=== PATIENT | female | born 1995 | race Hispanic/Latino ===

== ENCOUNTER 2021-02-02 13:52 | Emergency (ER) | payer SELFPAY ==
[2021-02-02 14:54] VITALS: BP 139/67
--- NOTE | 2021-02-02 15:03 | Emergency Department Report ---
- General Chief complaint: Skin Rash Stated complaint: RASH Time Seen by Provider: 02/02/21 14:58 Source: patient Mode of arrival: Ambulatory Limitations: No Limitations - History of Present Illness Initial comments: Patient is a 25-year-old female presents emergency room complaints of a diffuse rash that began yesterday. She has associated itching. Patient states that they just moved here from [place]. She states that she just bought a new bed and new mattress. She states that she has been keeping her clothes out in her trunk. She denies anyone else with the same rash. She denies any new soaps, lotions, detergents, medications, foods, anything else new that she can think of. No past medical history. No allergies medications. - Related Data Previous Rx's Medication Instructions Recorded Last Taken Type Cetirizine HCl [ZyrTEC 10mg rapdis] 10 mg PO DAILY #10 tab.rapdis 02/02/21 Unknown Rx Hydrocortisone 1% [Hydrocortisone 1 applicatio TP TID #1 tube 02/02/21 Unknown Rx 1% CREAM] Abscess Boil HPI - HPI Chief Complaint: Skin Rash Stated Complaint: RASH Time Seen by Provider: 02/02/21 14:58 Home Medications: Previous Rx's Medication Instructions Recorded Last Taken Type Cetirizine HCl [ZyrTEC 10mg rapdis] 10 mg PO DAILY #10 tab.rapdis 02/02/21 Unknown Rx Hydrocortisone 1% [Hydrocortisone 1 applicatio TP TID #1 tube 02/02/21 Unknown Rx 1% CREAM] ED Review of Systems ROS: Stated complaint: RASH Other details as noted in HPI Comment: All other systems reviewed and negative ED Past Medical Hx - Past Medical History Previous Medical History?: No Additional medical history: tachycardia - Surgical History Past Surgical History?: Yes Additional Surgical History: ovary and fallopian tube removal - Medications Home Medications: Home Medications Medication Instructions Recorded Confirmed Last Taken Type Cetirizine HCl [ZyrTEC 10mg rapdis] 10 mg PO DAILY #10 tab.rapdis 02/02/21 Unknown Rx Hydrocortisone 1% [Hydrocortisone 1 applicatio TP TID #1 tube 02/02/21 Unknown Rx 1% CREAM] ED Physical Exam - General Limitations: No Limitations General appearance: alert, in no apparent distress - Head Head exam: Present: atraumatic, normocephalic - Eye Eye exam: Present: normal appearance - ENT ENT exam: Present: mucous membranes moist - Respiratory Respiratory exam: Absent: respiratory distress, accessory muscle use - Neurological Exam Neurological exam: Present: alert, oriented X3 - Psychiatric Psychiatric exam: Present: normal affect, normal mood - Skin Skin exam: Present: warm, dry, other (diffuse erythematous papules consistent with bites, no signs of infection, no crusting, no skin denuding) ED Course Vital Signs 02/02/21 14:54 Temperature 98.4 F Pulse Rate 92 H Respiratory 18 Rate Blood Pressure 139/67 O2 Sat by Pulse 100 Oximetry ED Medical Decision Making - Medical Decision Making Patient is a 25-year-old female presents emergency room complaints of a diffuse rash that began yesterday. She has associated itching. Patient states that they just moved here from [place]. She states that she just bought a new bed and new mattress. She states that she has been keeping her clothes out in her trunk. She denies anyone else with the same rash. She denies any new soaps, lotions, detergents, medications, foods, anything else new that she can think of. No past medical history. No allergies medications. Vitals are stable. On exam:diffuse erythematous papules consistent with bites, no signs of infection, no crusting, no skin denuding. Examination appears insistent with bedbug bites versus insect bites. She has no signs of acute allergic reaction, no signs of acute emergent skin condition. Advised patient Rash could be related to insect bite versus bedbug bites. Please use medication as prescribed. Please seal up your close in a trash bag for 1 week and to wash everything else in hot water and bleach. Follow-up with your primary care doctor for reexamination. Return to emergency room for new or worsening symptoms. Critical care attestation.: If time is entered above; I have spent that time in minutes in the direct care of this critically ill patient, excluding procedure time. ED Disposition Clinical Impression: Rash Disposition: DC-01 TO HOME OR SELFCARE Is pt being admited?: No Does the pt Need Aspirin: No Condition: Stable Instructions: Insect Bite, Adult, [id number] Additional Instructions: Rash could be related to insect bite versus bedbug bites. Please use medication as prescribed. Please seal up your close in a trash bag for 1 week and to wash everything else in hot water and bleach. Follow-up with your primary care doctor for reexamination. Return to emergency room for new or worsening symptoms. Prescriptions: Hydrocortisone 1% [Hydrocortisone 1% CREAM] 1 applicatio TP TID #1 tube Cetirizine HCl [ZyrTEC 10mg rapdis] 10 mg PO DAILY #10 tab.rapdis Referrals: FLOR WEINER MD [Staff Physician] - 3-5 Days [facility] [Provider Group] - 3-5 Days [facility], [LAB/CONTRACT] - 3-5 Days [facility] [Outside] - 3-5 Days Forms: Work/School Release Form(ED) Time of Disposition: 15:01 Print Language: LITHUANIAN
== END 2021-02-02 15:20 | disposition home or self-care (01) ==
LOC: ED 13:52
DX: R21 Rash and other nonspecific skin eruption (principal); Z79.899 Other long term (current) drug therapy
CPT/HCPCS: 99281